=== PATIENT | female | born 1970 | race Caucasian/White ===

== ENCOUNTER 2017-10-20 13:33 | Observation (INO) | payer SELFPAY ==
[~2017-10-20 13:33] MED LIST: ASPI81 PO; CLOP75 PO; DICY1TAB26 PO; LEVO50TA4 PO; LORTA5 PO; PANT20 PO; ZOFR4TAB3 SL
[2017-10-20] MEDS ORDERED: IOHEXOL 350 MG/ML 10 ML VIAL (for RAD DIAG) IVCONTRAST ONE (13:34)
[2017-10-20 13:49] VITALS: BP 137/89; PULSE 106; RESP 14; TEMP 98.3; O2SAT 97
--- NOTE | 2017-10-20 14:43 | RADRPT ---
EXAM DATE/TIME: 10/20/2017 14:30 [facility] COMPARISON: CHEST SINGLE AP, May 13, 2016, 22:19. INDICATIONS : Chest pain, cough, and chills. Flu like symptoms. MEDICAL HISTORY : Asthma. SURGICAL HISTORY : Tubal ligation. ASD device in heart, pt. states she had holes in her heart. ENCOUNTER: Initial ACUITY: 3 days PAIN SCORE: 9/10 LOCATION: Bilateral chest FINDINGS: PA and lateral views of the chest demonstrate the lungs to be symmetrically aerated without evidence of mass, infiltrate or effusion. The cardiomediastinal contours are unremarkable. Osseous structure s are intact. CONCLUSION: No acute disease. No significant change has occurred. Gaurang Loyd MD on October 20, 2017 at 14:41 Board Certified Radiologist. This report was verified electronically.
[2017-10-20 15:36] LABS: PROTHROMBIN TIME - PATIENT 10.1 SEC (9.8-11.6)
[2017-10-20 15:40] LABS: AUTOMATED NEUTROPHIL # 6.3 TH/MM3 (1.8-7.7); BASOPHIL # 0.1 TH/MM3 (0-0.2); BASOPHIL % 1.3 % (0.0-2.0); EOSINOPHIL # 0.1 TH/MM3 (0-0.4); EOSINOPHIL % 0.6 % (0.0-4.0); HEMOGLOBIN 13.2 GM/DL (11.6-15.3); LYMPH % 23.3 % (9.0-44.0); LYMPHOCYTE # 2.1 TH/MM3 (1.0-4.8); MEAN CELL VOLUME 85.8 FL (80.0-100.0); MEAN CORPUSCULAR HGB CONC 33.7 % (32.0-36.0); MEAN PLATELET VOLUME 9.6 FL (7.0-11.0); MONO % 6.5 % (0.0-8.0); MONOCYTE # 0.6 TH/MM3 (0-0.9); NEUT % 68.3 % (16.0-70.0); PLATELET COUNT 322 TH/MM3 (150-450); RED BLOOD COUNT 4.55 MIL/MM3 (4.00-5.30); RED CELL DISTRIBUTION WIDTH 13.7 % (11.6-17.2); WHITE BLOOD COUNT 9.2 TH/MM3 (4.0-11.0)
[2017-10-20 15:45] LABS: BICARBONATE 21.9 MEQ/L (21.0-32.0); BLOOD UREA NITROGEN 9 MG/DL (7-18); CALCIUM 8.7 MG/DL (8.5-10.1); CHLORIDE 112 MEQ/L (98-107); CREATININE 0.85 MG/DL (0.50-1.00); GLOMERULAR FILTRATION RATE 72 ML/MIN (>89); GLUCOSE,RANDOM 102 MG/DL (74-106); MAGNESIUM 2.2 MG/DL (1.5-2.5); SODIUM (NA) 141 MEQ/L (136-145)
[2017-10-20 15:46] LABS: TROPONIN I LESS THAN 0.02 NG/ML (0.02-0.05)
[2017-10-20] MEDS ORDERED: TOPI50TA7 PO (18:03)
[2017-10-20] MEDS ORDERED: AMLO10TA2 PO (18:03)
[2017-10-20] MEDS ORDERED: CLON0.5T PO (18:03)
--- NOTE | 2017-10-20 18:19 | PD ---
HPI Chief Complaint: Chest Pain Time Seen by Provider: 18:01 Travel History International Travel<30 days: No Contact w/Intl Traveler<30days: No Traveled to known affect area: No History of Present Illness HPI 47-year-old female presents to the emergency department for evaluation of midsternal chest pain. She states that she thought she had the flu in August and has been having intermittent chest pain since then. However, her last 2 days it has worsened. She states that now radiates to the back and jaw. With sitting still, she rates the pain 0/10. However, with exertion, she states the pain becomes more severe, 6/10, sharp. Patient states she went to her primary care physician's office today for evaluation who referred her to the emergency department. Patient states she had cardiac surgery approximately 2 years for " a hole in my heart". She states she has not followed up due to lack of money. She states she has been under increased stress lately with her mother recently having a CVA. She does have history of hypertension. Patient states she has had a chronic dry cough. She denies any leg edema or hemoptysis. No recent travel or surgery. She is slightly tachycardic on arrival to the ED. Patient reports history tubal ligation. Moderate severity. PFSH Past Medical History Cancer: No Cardiovascular Problems: Yes (ASD; HTN) Cerebrovascular Accident: Yes (TIA) Diabetes: No Diminished Hearing: No Endocrine: Yes Musculoskeletal: No Neurologic: Yes Psychiatric: No Respiratory: Yes (ASTHMA) Immunizations Current: Yes Thyroid Disease: Yes ?: Dilation and Curettage (D&C): Yes Tubal Ligation: Yes Past Surgical History Cardiac Surgery: Yes (ASD PATCH ) Cholecystectomy: Yes Gynecologic Surgery: Yes (CERVICAL CONE X 2 ) Tonsillectomy: Yes Other Surgery: Yes Social History Alcohol Use: Yes (OCCASIONALLY) Tobacco Use: No Substance Use: No Allergies-Medications (Allergen,Severity, Reaction): Coded Allergies: penicillin G (Unverified Allergy, Severe, Anaphylaxis, 03/31/17) Reported Meds & Prescriptions Reported Meds & Active Scripts Active Reported Amlodipine (Amlodipine Besylate) 10 Mg Tab 10 Mg PO DAILY Topiramate 50 Mg Tab 50 Mg PO BID Clonazepam 0.5 Mg Tab 0.5 Mg PO TID Review of Systems Except as stated in HPI: all other systems reviewed are Neg Physical Exam Narrative GENERAL: Well-nourished, well-developed female patient, afebrile. SKIN: Focused skin assessment warm/dry. HEAD: Normocephalic. Atraumatic. EYES: No scleral icterus. No injection or drainage. NECK: Supple, trachea midline. No JVD or lymphadenopathy. CARDIOVASCULAR: Regular rate and rhythm without murmurs, gallops, or rubs. Bilateral radial and pedal pulses are 2+. RESPIRATORY: Breath sounds equal bilaterally. No accessory muscle use. Lungs sounds are clear to auscultation. GASTROINTESTINAL: Abdomen soft, non-tender, nondistended. MUSCULOSKELETAL: No cyanosis, or edema. BACK: Nontender without obvious deformity. No CVA tenderness. Data Data Last Documented VS Vital Signs Date Time Temp Pulse Resp B/P (MAP) Pulse Ox O2 Delivery O2 Flow Rate FiO2 10/20/17 17:55 99 Room Air 10/20/17 13:49 98.3 106 14 137/89 (105) Orders Orders Electrocardiogram (10/20/17 13:51) Basic Metabolic Panel (Bmp) (10/20/17 13:51) Ckmb (Isoenzyme) Profile (10/20/17 13:51) Complete Blood Count With Diff (10/20/17 13:51) Magnesium (Mg) (10/20/17 13:51) Prothrombin Time / Inr (Pt) (10/20/17 13:51) Act Partial Throm Time (Ptt) (10/20/17 13:51) Troponin I (10/20/17 13:51) Lipase (10/20/17 13:51) Chest, Pa & Lat (10/20/17 13:51) Aspirin Chew (Aspirin Chew) (10/20/17 18:30) Ct Pulmonary Angiogram (10/20/17 ) Ed Urine Pregnancytest Poc (10/20/17 18:17) Troponin I (10/20/17 20:17) Electrocardiogram (10/20/17 ) Labs Laboratory Tests Test 10/20/17 14:15 10/20/17 20:25 White Blood Count 9.2 TH/MM3 Red Blood Count 4.55 MIL/MM3 Hemoglobin 13.2 GM/DL Hematocrit 39.0 % Mean Corpuscular Volume 85.8 FL Mean Corpuscular Hemoglobin 29.0 PG Mean Corpuscular Hemoglobin Concent 33.7 % Red Cell Distribution Width 13.7 % Platelet Count 322 TH/MM3 Mean Platelet Volume 9.6 FL Neutrophils (%) (Auto) 68.3 % Lymphocytes (%) (Auto) 23.3 % Monocytes (%) (Auto) 6.5 % Eosinophils (%) (Auto) 0.6 % Basophils (%) (Auto) 1.3 % Neutrophils # (Auto) 6.3 TH/MM3 Lymphocytes # (Auto) 2.1 TH/MM3 Monocytes # (Auto) 0.6 TH/MM3 Eosinophils # (Auto) 0.1 TH/MM3 Basophils # (Auto) 0.1 TH/MM3 CBC Comment DIFF FINAL Differential Comment Prothrombin Time 10.1 SEC Prothromb Time International Ratio 1.0 RATIO Activated Partial Thromboplast Time 27.7 SEC Blood Urea Nitrogen 9 MG/DL Creatinine 0.85 MG/DL Random Glucose 102 MG/DL Calcium Level 8.7 MG/DL Magnesium Level 2.2 MG/DL Sodium Level 141 MEQ/L Potassium Level 3.7 MEQ/L Chloride Level 112 MEQ/L Carbon Dioxide Level 21.9 MEQ/L Anion Gap 7 MEQ/L Estimat Glomerular Filtration Rate 72 ML/MIN Total Creatine Kinase 73 U/L Troponin I LESS THAN 0.02 NG/ML Lipase 132 U/L [facility] Medical Decision Making Medical Screen Exam Complete: Yes Emergency Medical Condition: Yes Medical Record Reviewed: Yes Differential Diagnosis ACS versus chest wall pain versus anxiety versus PE Narrative Course 47-year-old female presents to the emergency department for evaluation of midsternal chest pain that radiates to the back in the jaw. Workup was initiated triage. EKG shows sinus rhythm, heart rate 84, no acute ST changes. CBC is unremarkable. BMP shows no acute abnormality. Magnesium is 2.2. CK is 73. Troponin is less than 0.02. Lipase is 132. Coags are unremarkable. She is given aspirin [address] pulmonary angiogram is ordered and pending. CT pulmonary angiogram is pending. Dr. Martinez will resume care and disposition of patient. Yasmeen Guadalupe Oct 20, 2017 18:19
[2017-10-20] MEDS ORDERED: ASPIRIN 81 MG CHEW TAB CHEW ONE (18:30)
--- NOTE | 2017-10-20 20:47 | PD ---
Data Data Last Documented VS Vital Signs Date Time Temp Pulse Resp B/P (MAP) Pulse Ox O2 Delivery O2 Flow Rate FiO2 10/20/17 17:55 99 Room Air 10/20/17 13:49 98.3 106 14 137/89 (105) Orders Orders Electrocardiogram (10/20/17 13:51) Basic Metabolic Panel (Bmp) (10/20/17 13:51) Ckmb (Isoenzyme) Profile (10/20/17 13:51) Complete Blood Count With Diff (10/20/17 13:51) Magnesium (Mg) (10/20/17 13:51) Prothrombin Time / Inr (Pt) (10/20/17 13:51) Act Partial Throm Time (Ptt) (10/20/17 13:51) Troponin I (10/20/17 13:51) Lipase (10/20/17 13:51) Chest, Pa & Lat (10/20/17 13:51) Aspirin Chew (Aspirin Chew) (10/20/17 18:30) Ct Pulmonary Angiogram (10/20/17 ) Ed Urine Pregnancytest Poc (10/20/17 18:17) Troponin I (10/20/17 20:17) Electrocardiogram (10/20/17 ) Iohexol 350 Inj (Omnipaque 350 Inj) (10/20/17 13:34) Admit Order (Ed Use Only) (10/20/17 23:02) Labs Laboratory Tests Test 10/20/17 14:15 10/20/17 20:25 White Blood Count 9.2 TH/MM3 Red Blood Count 4.55 MIL/MM3 Hemoglobin 13.2 GM/DL Hematocrit 39.0 % Mean Corpuscular Volume 85.8 FL Mean Corpuscular Hemoglobin 29.0 PG Mean Corpuscular Hemoglobin Concent 33.7 % Red Cell Distribution Width 13.7 % Platelet Count 322 TH/MM3 Mean Platelet Volume 9.6 FL Neutrophils (%) (Auto) 68.3 % Lymphocytes (%) (Auto) 23.3 % Monocytes (%) (Auto) 6.5 % Eosinophils (%) (Auto) 0.6 % Basophils (%) (Auto) 1.3 % Neutrophils # (Auto) 6.3 TH/MM3 Lymphocytes # (Auto) 2.1 TH/MM3 Monocytes # (Auto) 0.6 TH/MM3 Eosinophils # (Auto) 0.1 TH/MM3 Basophils # (Auto) 0.1 TH/MM3 CBC Comment DIFF FINAL Differential Comment Prothrombin Time 10.1 SEC Prothromb Time International Ratio 1.0 RATIO Activated Partial Thromboplast Time 27.7 SEC Blood Urea Nitrogen 9 MG/DL Creatinine 0.85 MG/DL Random Glucose 102 MG/DL Calcium Level 8.7 MG/DL Magnesium Level 2.2 MG/DL Sodium Level 141 MEQ/L Potassium Level 3.7 MEQ/L Chloride Level 112 MEQ/L Carbon Dioxide Level 21.9 MEQ/L Anion Gap 7 MEQ/L Estimat Glomerular Filtration Rate 72 ML/MIN Total Creatine Kinase 73 U/L Troponin I LESS THAN 0.02 NG/ML LESS THAN 0.02 NG/ML Lipase 132 U/L [facility] Medical Record Reviewed: Yes Supervised Visit with LYNN: Yes Interpretation(s) Last Impressions Chest X-Ray 10/20/17 1351 Signed Impressions: Service Date/Time: Friday, October 20, 2017 14:30 - CONCLUSION: No acute disease. No significant change has occurred. Gaurang Loyd MD CT Angiography 10/20/17 0000 Signed Impressions: Service Date/Time: Friday, October 20, 2017 22:37 - CONCLUSION: 1. Study is negative for pulmonary embolism. Juvenal Swann MD Narrative Course I, Dr. Martinez, have reviewed the advance practice practitioner's documentation and am in agreement, met with the patient face to face, made the diagnosis, and the medical decision making was done by me. The patient was initially evaluated by Yasmeen, the nurse practitioner. Please see her complete history and physical. *My assessment and Findings: The patient presents with a history of chest pain in the midsternal area that began after she had the flu in August. During the course of the patient's emergency department visit, the patient's history, examination, and differential diagnosis were reviewed with the patient. The patient was placed on a court recording monitor with oximetry and frequent blood pressure monitoring. The patient had IV access obtained and blood work sent for analysis. The patient was initially provided aspirin 162 mg p.o. 1, normal saline at 100 mL/h. The patient's laboratory studies were reviewed and remarkable for a CBC that is within normal, basic metabolic profile unremarkable, initial set of cardiac enzymes negative, lipase 132, PT PTT within normal limits. Radiology studies were reviewed and remarkable for a chest x-ray that shows no acute cardiopulmonary disease, CTA to rule out PE was negative for pulmonary embolism. The patient will be admitted to the hospital and to the chest pain center for a rule out serial cardiac enzyme protocol followed by stress testing. The patient's results were discussed with the patient, including the plan of care. I explained that further testing and/ or monitoring is indicated based on the patient's history, examination, and/ or laboratory findings. Therefore, I recommended admission for additional evaluation. The patient expressed understanding and was agreeable with this plan. The patient was admitted to the hospital in stable condition and sent to a bed under the care of the chest pain center. Diagnosis Primary Impression: Chest pain, rule out acute myocardial infarction Admitting Information Admitting Physician Requests: Susanne Pickering MD Oct 20, 2017 20:47
--- NOTE | 2017-10-20 22:59 | RADRPT ---
EXAM DATE/TIME: 10/20/2017 22:37 [facility] COMPARISON: No previous studies available for comparison. INDICATIONS : Substernal chest pain radiating to left jaw and shoulder. IV CONTRAST: 75 cc Omnipaque 350 (iohexol) IV RADIATION DOSE: 8.82 CTDIvol (mGy) MEDICAL HISTORY : Cardiovascular disease. SURGICAL HISTORY : Cholecystectomy. Tubal ligation. ENCOUNTER: Initial ACUITY: 2 days PAIN SCALE: 9/10 LOCATION: chest TECHNIQUE: Volumetric scanning of the chest was performed using a pulmonary embolism protocol MIP images were re constructed. Using automated exposure control and adjustment of the mA and/or kV according to patien t size, radiation dose was kept as low as reasonably achievable to obtain optimal diagnostic quality images. DICOM format image data is available electronically for review and comparison. Follow-up recommendations for detected pulmonary nodules are based at a minimum on nodule size and pa tient risk factors according to Fleischner Society Guidelines. FINDINGS: PULMONARY ARTERIES: No filling defects are seen in the pulmonary arteries through the segmental level. LUNGS: There is no consolidation or pneumothorax . No concerning pulmonary nodule is visualized. PLEURAE: There is no pleural thickening or pleural effusion. MEDIASTINUM: There is good visualization of the great vessels of the middle mediastinum. No evidence of mediastin al or hilar adenopathy/mass. CONCLUSION: 1. Study is negative for pulmonary embolism. Juvenal Swann MD on October 20, 2017 at 22:56 Board Certified Radiologist. This report was verified electronically.
[2017-10-20] MEDS ORDERED: SODIUM CHLORIDE 0.9% FLUSH 10 ML FLUSH IV FLUSH PRN (23:15)
[2017-10-20] MEDS ORDERED: ACETAMINOPHEN 500 MG CPLT PO PRN (23:15)
[2017-10-21 00:09] LABS: TROPONIN I LESS THAN 0.02 NG/ML (0.02-0.05)
[2017-10-21] MEDS: SODIUM CHLOR 0.9% 1000 ML INJ 1,000 ML IV SCH ×2 (00:17→03:19)
[2017-10-21 02:00] VITALS: BP 97/61; PULSE 75; RESP 17; TEMP 98.3; O2SAT 95
[2017-10-21 04:00] VITALS: PULSE 70
[2017-10-21 04:38] VITALS: BP 103/70; PULSE 78; RESP 20; TEMP 98; O2SAT 98
[2017-10-21 04:49] VITALS: O2SAT 98
[2017-10-21 05:25] LABS: TROPONIN I LESS THAN 0.02 NG/ML (0.02-0.05)
[2017-10-21 08:00] VITALS: BP 110/60; PULSE 68; RESP 16; TEMP 97.4; O2SAT 97
[2017-10-21] MEDS ORDERED: KETOROLAC TROMETHAMINE 30 MG/ML (IVP) VIAL IVP ONE (08:15)
[2017-10-21] MEDS ORDERED: SODIUM CHLORIDE 0.9% FLUSH 10 ML FLUSH IV FLUSH SCH (09:00)
[2017-10-21] MEDS ORDERED: ASPI-516 CHEW (09:45)
[2017-10-21] MEDS ORDERED: ASPIRIN 81 MG CHEW TAB CHEW SCH (09:45)
[2017-10-21] MEDS ORDERED: TOPIRAMATE 25 MG TAB PO SCH (09:45)
--- NOTE | 2017-10-21 09:46 | HHI.DCPOC ---
Discharge Care Plan Diagnosis: (1) Chest pain, atypical Goals to Promote Your Health * To prevent worsening of your condition and complications * To maintain your health at the optimal level Directions to Meet Your Goals Take your medications as prescribed Follow your dietary instruction Follow activity as directed Keep your appointments as scheduled Take your immunizations and boosters as scheduled If your symptoms worsen call your PCP, if no PCP go to Urgent Care Center or Emergency Room Smoking is Dangerous to Your Health. Avoid second hand smoke Call the 24-hour hour crisis hotline for domestic abuse at Celso Bruce Oct 21, 2017 09:46
--- NOTE | 2017-10-21 11:24 | HHI.HP ---
HPI Primary Care Physician Lexx Sunshine DO Chief Complaint Chest pain History of Present Illness This is a 47-year-old female that presents to ED via private vehicle with family with history of repair of PFO in 2015 complaining of chest discomfort. States that she has been dealing with URI/flulike symptoms since August. States she has had a constant discomfort in the center of her chest that is worsened when she coughs or certain movements. This is been present for weeks. States she has had chills at times but cannot recall a documented fever. Her cough has been nonproductive. She has been achy and fatigued. Review of Systems General: Patient has had chills. Denies fevers and recent travel. HEENT: Patient denies headache, sore throat, difficulty swallowing. Cardiovascular: Has the chest discomfort as mentioned above. Denies sensation of heart beating rapidly or irregularly. No syncope. Denies diaphoresis. Respiratory: Complains of nonproductive cough. Denies shortness of breath or inspirational chest discomfort. Denies wheezing or hemoptysis. GI: Patient denies nausea, vomiting, diarrhea, abdominal pain, bloody stools. Musculoskeletal: Patient denies joint pain or edema. Denies calf pain or edema. Neurovascular: Patient denies numbness, tingling, weakness in extremities. Denies headache. Endocrine: Denies polyuria and polydipsia. Hematologic: Denies easy bruising. Skin: Denies rash or itching. Past Family Social History Allergies: Coded Allergies: penicillin G (Unverified Allergy, Severe, Anaphylaxis, 03/31/17) Past Medical History Repair of a PFO in 2015. CVA. Seizure disorder. Hypertension. Denies known CAD, diabetes, and hyperlipidemia. Past Surgical History Repair of the PFO 2015. Tonsillectomy. Reported Medications Reported Meds & Active Scripts Active Reported Aspirin 81 Mg Chew 81 Mg CHEW DAILY Amlodipine (Amlodipine Besylate) 10 Mg Tab 10 Mg PO DAILY Topiramate 50 Mg Tab 50 Mg PO BID Clonazepam 0.5 Mg Tab 0.5 Mg PO TID Active Ordered Medications Current Medications Medications (Trade) Dose Ordered Sig/Dean Route Start Time Stop Time Status Last Admin Sodium Chloride 1,000 ml @ 100 mls/hr Q10H IV 10/20/17 23:03 10/21/17 03:19 (NS Flush) 2 ml UNSCH PRN IV FLUSH 10/20/17 23:15 (NS Flush) 2 ml BID IV FLUSH 10/21/17 09:00 10/21/17 09:19 (Tylenol) 500 mg Q4H PRN PO 10/20/17 23:15 (Aspirin Chew) 81 mg DAILY CHEW 10/21/17 09:45 10/21/17 10:01 (Topamax) 50 mg BID PO 10/21/17 09:45 Family History Denies family history of CAD. Social History Non-smoker. Has occasional alcohol. Denies illicit drugs. Physical Exam Vital Signs Vital Signs Date Time Temp Pulse Resp B/P (MAP) Pulse Ox O2 Delivery O2 Flow Rate FiO2 10/21/17 08:00 97.4 68 16 110/60 (77) 97 10/21/17 04:49 98 21 10/21/17 04:38 98.0 78 20 103/70 (81) 98 10/21/17 04:00 70 10/21/17 02:00 98.3 75 17 97/61 (73) 95 10/20/17 17:55 99 Room Air 10/20/17 13:49 98.3 106 14 137/89 (105) 97 Physical Exam GENERAL: This is a well-nourished, well-developed patient, in no apparent distress. Patient speaks in clear complete sentences. Patient is pleasant. HEENT: Head is atraumatic and normocephalic. Neck is supple without lymphadenopathy and trachea is midline. No JVD or carotid bruits. CARDIOVASCULAR: Grade 2 systolic murmur left sternal border. Regular rate and rhythm without gallops, or rubs. RESPIRATORY: Clear to auscultation. Breath sounds equal bilaterally. No wheezes , rales, or rhonchi. Chest wall is nontender. No use of accessory muscles. GASTROINTESTINAL: Abdomen is nontender, nondistended. Abdomen soft. No obvious pulsatile mass or bruit. No CVA tenderness. Strong femoral pulses bilaterally. Normal bowel sounds in all quadrants. MUSCULOSKELETAL: Patient is moving upper and lower extremities freely. No calf tenderness or edema, no Homans sign. Strong pulses in upper and lower extremities. NEUROLOGICAL: Patient is alert and oriented. Cranial nerves 2-12 are grossly intact. No focal deficits and speech is clear. SKIN: No rash and turgor is normal. Laboratory Laboratory Tests Test 10/20/17 14:15 10/20/17 20:25 10/20/17 23:40 10/21/17 04:10 White Blood Count 9.2 Red Blood Count 4.55 Hemoglobin 13.2 Hematocrit 39.0 Mean Corpuscular Volume 85.8 Mean Corpuscular Hemoglobin 29.0 Mean Corpuscular Hemoglobin Concent 33.7 Red Cell Distribution Width 13.7 Platelet Count 322 Mean Platelet Volume 9.6 Neutrophils (%) (Auto) 68.3 Lymphocytes (%) (Auto) 23.3 Monocytes (%) (Auto) 6.5 Eosinophils (%) (Auto) 0.6 Basophils (%) (Auto) 1.3 Neutrophils # (Auto) 6.3 Lymphocytes # (Auto) 2.1 Monocytes # (Auto) 0.6 Eosinophils # (Auto) 0.1 Basophils # (Auto) 0.1 CBC Comment DIFF FINAL Differential Comment Prothrombin Time 10.1 Prothromb Time International Ratio 1.0 Activated Partial Thromboplast Time 27.7 Blood Urea Nitrogen 9 Creatinine 0.85 Random Glucose 102 Calcium Level 8.7 Magnesium Level 2.2 Sodium Level 141 Potassium Level 3.7 Chloride Level 112 Carbon Dioxide Level 21.9 Anion Gap 7 Estimat Glomerular Filtration Rate 72 Total Creatine Kinase 73 53 61 Troponin I LESS THAN 0.02 LESS THAN 0.02 LESS THAN 0.02 LESS THAN 0.02 Lipase 132 Result Diagram: 10/20/17 1415 10/20/17 1415 Imaging Last 48 hours Impressions Chest X-Ray 10/20/17 1351 Signed Impressions: Service Date/Time: Friday, October 20, 2017 14:30 - CONCLUSION: No acute disease. No significant change has occurred. Gaurang Loyd MD CT Angiography 10/20/17 0000 Signed Impressions: Service Date/Time: Friday, October 20, 2017 22:37 - CONCLUSION: 1. Study is negative for pulmonary embolism. Juvenal Swann MD Course EKGs are sinus rhythm without significant ST segment depressions or elevations. Caprini VTE Risk Assessment Caprini VTE Risk Assessment: No/Low Risk (score <= 1) Caprini Risk Assessment Model Point Value = 1 Point Value = 2 Point Value = 3 Point Value = 5 Age 41-60 Minor surgery BMI > 25 kg/m2 Swollen legs Varicose veins or History of unexplained or recurrent spontaneous Oral contraceptives or hormone replacement Sepsis (< 1 month) Serious lung disease, including pneumonia (< 1 month) Abnormal pulmonary function Acute myocardial infarction Congestive heart failure (< 1 month) History of inflammatory bowel disease Medical patient at bed rest Age 61-74 Arthroscopic surgery Major open surgery (> 45 min) Laparoscopic surgery (> 45 min) Malignancy Confined to bed (> 72 hours) Immobilizing plaster cast Central venous access Age >= 75 History of VTE Family history of VTE Factor V Leiden Prothrombin [id number] Lupus anticoagulant Anticardiolipin antibodies Elevated serum homocysteine Heparin-induced thrombocytopenia Other congenital or acquired thrombophilia Stroke (< 1 month) Elective arthroplasty Hip, pelvis, or leg fracture Acute spinal cord injury (< 1 month) Prophylaxis Regimen Total Risk Factor Score Risk Level Prophylaxis Regimen 0-1 Low Early ambulation 2 Moderate Order ONE of the following: *Sequential Compression Device (SCD) *Heparin 5000 units SQ BID 3-4 Higher Order ONE of the following medications: *Heparin 5000 units SQ TID *Enoxaparin/Lovenox 40 mg SQ daily (WT < 150 kg, CrCl > 30 mL/min) *Enoxaparin/Lovenox 30 mg SQ daily (WT < 150 kg, CrCl > 10-29 mL/min) *Enoxaparin/Lovenox 30 mg SQ BID (WT < 150 kg, CrCl > 30 mL/min) AND/OR *Sequential Compression Device (SCD) 5 or more Highest Order ONE of the following medications: *Heparin 5000 units SQ TID (Preferred with Epidurals) *Enoxaparin/Lovenox 40 mg SQ daily (WT < 150 kg, CrCl > 30 mL/min) *Enoxaparin/Lovenox 30 mg SQ daily (WT < 150 kg, CrCl > 10-29 mL/min) *Enoxaparin/Lovenox 30 mg SQ BID (WT < 150 kg, CrCl > 30 mL/min) AND *Sequential Compression Device (SCD) Assessment and Plan Assessment and Plan * Atypical chest pain: Patient has had serial cardiac enzymes and EKGs for ruling out purposes. She was seen by Dr. Erick Westbrook of cardiology in the chest pain center. She will be given Toradol IV. She will be discharged home with instructions to supportive care and follow-up with her PCP. Return to ED for interval issues. * Hypertension: Continue current medication. 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 * History of CVA: Continue medication. Continue follow-up with her physician. * Seizure disorder: Continue current medication. Patient is stable at this time. She is agreeable to this plan. Celso Bruce Oct 21, 2017 11:24
--- NOTE | 2017-10-21 13:47 | EKG ---
Date Performed: 10/20/2017 Time Performed: 20:43:01 PTAGE: 47 years EKG: Sinus rhythm WITH FIRST DEGREE AV BLOCK ABNORMAL ECG PREVIOUS TRACING : 10/20/2017 14.09 DOCTOR: Nazario Tolbert Interpretating Date/Time 10/21/2017 13:45:56
--- NOTE | 2017-10-21 14:40 | EKG ---
Date Performed: 10/20/2017 Time Performed: 14:09:54 PTAGE: 47 years EKG: Sinus rhythm NORMAL ECG PREVIOUS TRACING : 05/13/2016 22.16 DOCTOR: Nazario Tolbert Interpretating Date/Time 10/21/2017 14:39:22
--- NOTE | 2017-10-23 08:51 | EKG ---
Date Performed: 10/21/2017 Time Performed: 03:59:25 PTAGE: 47 years EKG: Sinus rhythm ARM LEADS REVERSED ATYPICAL ECG PREVIOUS TRACING : 10/20/2017 20.43 DOCTOR: Erick Westbrook Interpretating Date/Time 10/23/2017 08:49:45
--- NOTE | 2017-10-23 08:53 | EKG ---
Date Performed: 10/20/2017 Time Performed: 23:47:52 PTAGE: 47 years EKG: Sinus rhythm NORMAL ECG NO PREVIOUS TRACING DOCTOR: Erick Westbrook Interpretating Date/Time 10/23/2017 08:51:08
== END 2017-10-21 13:29 | disposition home or self-care (01) ==
LOC: NEPC 13:33 → NEDA 23:03 → NEDH 10-21 03:48
PROVIDERS: ADMIT Internal Medicine Interventional Cardiology; ATTEND Internal Medicine Interventional Cardiology
DX: R07.2 Precordial pain (principal); R05 Cough; R53.83 Other fatigue; I44.0 Atrioventricular block, first degree; R94.31 Abnormal electrocardiogram [ECG] [EKG]; R68.83 Chills (without fever); I10 Essential (primary) hypertension; J45.909 Unspecified asthma, uncomplicated; E07.9 Disorder of thyroid, unspecified; G40.909 Epilepsy, unspecified, not intractable, without status epilepticus; Z86.73 Personal history of transient ischemic attack (TIA), and cerebral infarction without residual deficits
CPT/HCPCS: 71046; 71275; 80048; 82550; 83690; 83735; 84484; 84703; 85025; 85610; 85730; 93005; 96361; 96374; 99285; G0378; J1885; J7030; Q9967